=== PATIENT | female | born 1990 | race Caucasian/White ===

== ENCOUNTER 2019-01-28 22:48 | Emergency (ER) | payer MEDICAID, SELFPAY ==
[2019-01-28 22:49] VITALS: BP 121/75; PULSE 73; RESP 15; TEMP 36.4; O2SAT 97; BMI 37.8
[2019-01-28 23:18] LABS: Color, Urine Yellow (Yellow); Glucose, Dipstick Normal (Normal); Ketone-Dipstick 5 mg/dl (Negative); Leukocyte Esterase-Dipstick 500 /ul (Negative); Nitrite-Dipstick Negative (Negative); Occult Blood-Urine 250 /ul (Negative); Protein-Dipstick 100 mg/dl (Negative); Specific Gravity, Urine 1.025 (1.002-1.030); Urine Clarity Cloudy (Clear); Urine Urobilinogen 1 mg/dl (Normal)
[2019-01-28 23:25] LABS: Urine Bilirubin Dipstick 1 mg/dL (Negative)
--- NOTE | 2019-01-28 23:35 | ED.VIS.GEN ---
History of Present Illness Chief Complaint: Complaint Narrative: She stated she is been having some urinary symptoms for last couple days. Frequency urgency and dysuria. She has had this before. She states she gets them after she drinks alcohol. No abdominal pain. No back pain. No fevers or chills. She did have some back pain a couple days ago but not currently. No home treatment. Past Medical History - Allergies and Home Meds Allergies/Adverse Reactions: Allergies latex Adverse Reaction (Mild, Verified 01/28/19 22:52) Itching topiramate [From Topamax] Adverse Reaction (Mild, Verified 01/28/19 22:52) Itching Primary Care Physician: Rajat Chi,Out of [Primary Care Provider] - Prior records reviewed: Yes Past Medical History: - - TI Surgical History: - Smoking Status: Never smoker Alcohol: Rare Drugs: None Review of Systems General: Denies: Chills, Fever, Sweats Eyes: Denies: Visual changes - bilaterally, Diplopia ENT: Denies: Rhinorrhea, Sore throat Cardiovascular: Denies: Chest pain, Palpitations Respiratory: Denies: Dyspnea, Cough, Dyspnea on exertion Gastrointestinal: Denies: Abdominal pain, Nausea, Vomiting, Diarrhea, Melena, Hematochezia Genitourinary: Reports: Dysuria, Frequency. Denies: Hematuria Musculoskeletal: Denies: Back pain, Extremity Pain Skin: Denies: Rash, Wounds Neurological: Denies: Headache, Weakness, Numbness Physical Exam Vital Signs/Narrative: Vital Signs Temp Pulse Resp BP Pulse Ox 01/28/19 22:49 97.6 F L 73 15 121/75 H 97 General: Well nourished, Well developed, No Acute Distress Head: Normocephalic, Atraumatic Eyes: Perrl, EOMI ENT: Moist mucous membranes, No rhinorrhea Neck: Supple, Nontender Cardiovascular: Regular rate, Regular rhythm, No murmurs Respiratory: No distress, CTA bilaterally, Chest nontender Abdomen: Soft, Nontender, Nondistended, Normal bowel sounds Back: Nontender, Normal Inspection Extremities: Nontender, No edema Skin: Normal color, No rash Neurological: Alert, Oriented x3, Cranial nerves II-XII grossly intact, Normal Strength, Normal Sensation Psychological: Normal affect, Normal Mood ED Disposition - Plan for ED Patient: Referrals: Rajat Chi,Out of [Primary Care Provider] -
[2019-01-28 23:36] LABS: Amorphous Sediment 1+ URATE; Bacteria RARE /hpf (None Seen); Mucous, Urine 2+ /hpf (<or=2+); Red Blood Cells-Urine 50-100 SEEN /hpf (0-5); Squamous Epithelial Cells - UA 5-10 SEEN /hpf (5-10); White Blood Cells 50-100 SEEN /hpf (0-5)
--- NOTE | 2019-01-28 23:40 | ED.VIS.GEN ---
History of Present Illness Chief Complaint: Complaint Past Medical History - Allergies and Home Meds Allergies/Adverse Reactions: Allergies latex Adverse Reaction (Mild, Verified 01/28/19 22:52) Itching topiramate [From Topamax] Adverse Reaction (Mild, Verified 01/28/19 22:52) Itching Primary Care Physician: Rajat Chi,Out of [Primary Care Provider] - Surgical History: - Smoking Status: Never smoker Alcohol: Rare Drugs: None Physical Exam Vital Signs/Narrative: Vital Signs Temp Pulse Resp BP Pulse Ox 01/28/19 22:49 97.6 F L 73 15 121/75 H 97 Diagnostic/Tx/Re-eval - Medical Decision Making Analysis shows significant white blood cells rare bacteria. Positive blood. At this time I think she likely has a hemorrhagic cystitis. Given Macrobid and Pyridium. We will follow-up as an outpatient. ED Disposition - Plan for ED Patient: Diagnosis: Urinary tract infection Instructions: ED UTI Cystitis Female Prescriptions: Nitrofurantoin Macrocrystals [Macrobid] 100 mg PO Q12 #10 cap Phenazopyridine HCl [Pyridium] 200 mg PO TID #10 tab Referrals: Rajat Chi,Out of [Primary Care Provider] -
[2019-01-28 23:45] VITALS: BP 132/74; PULSE 84; RESP 16; O2SAT 98
[2019-01-28] MEDS: Phenazopyridine 95 MG Tablet 190 MG PO (23:46)
[2019-01-28] MEDS: Nitrofurantoin Macrocrystals 100 MG Capsule PO (23:46)
== END 2019-01-28 23:47 | disposition home or self-care (01) ==
PROVIDERS: Emergency Provider Emergency Medicine; Family Provider Family Medicine; PCP Family Medicine
DX: N39.0 Urinary tract infection, site not specified (principal); Z79.899 Other long term (current) drug therapy
CPT/HCPCS: 81001; 99283

== ENCOUNTER → 2024-11-14 | Outpatient (CLI) | payer MEDICAID, SELFPAY ==
--- NOTE | 2024-11-14 13:24 | RAD_ITS ---
PROCEDURE: CHEST PA AND LATERAL REASON FOR EXAM: Cough. History of flu. TECHNIQUE: Frontal and lateral views of the chest. COMPARISON: None. FINDINGS: The heart is nonenlarged. The lungs are clear. The bones are unremarkable. RAD/Chest PA and Lateral IMPRESSION: Normal examination. Reading Location: [id number]
== END | disposition home or self-care (01) ==
LOC: MTRAD 13:23
PROVIDERS: Referring Provider Physician Assistant Surgical; Visit Provider Physician Assistant Surgical
DX: R05.9 Cough, unspecified (principal)
CPT/HCPCS: 71046